=== PATIENT | male | born 1985 | race Caucasian/White ===

== ENCOUNTER 2017-05-21 17:01 | Emergency (ER) | payer OTHER ==
[~2017-05-21] VITALS: Ht 175.3 cm; Wt 99.8 kg
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
--- NOTE | ~2017-05-21 | CR93 ---
[facility] A Service of [facility] & [facility] RADIOLOGY TEXT RESULTS PATIENT: CAN CELIS LOCATION: [facility] : 89 UNIT #: [id number] AGE: [address]: Geno Peña SEX: M ORDER DR: [id number] [facility] [address]. [place], [place] [address] [id number] E MR#: [id number] Acc #: [id number] NAME: CAN CELIS : 1985 SEX: M STUDY DATE/TIME: 05/21/2017 18:27 UNIT: [facility] ROOM: STUDY DESCRIPTION: CR Elbow Min 3 Views Lt Attending Physician: Geno Peña Pa-C Ordering Physician: Geno Peña Pa-C MEDICAL IMAGING REPORT This report is preliminary unless electronic signature is present EXAM Left elbow series, 05/21/2017 HISTORY Fall. Posterior elbow pain today. FINDINGS AP, lateral and oblique radiographs of the left elbow show normal bony mineralization. No traumatic fracture or malalignment. The joint spaces are intact. No effusion. No acute-appearing soft tissue abnormality. Dictated by... Tony Bang M.D. THIS IS AN ELECTRONICALLY VERIFIED REPORT Tony Bang M.D. at 05/22/2017 8:03 PM MIKE/jesus TD: 05/21/2017 23:06 JOB #: [id number] MEDICAL IMAGING REPORT Page 1 of 1 COPY
[~2017-05-21 17:01] MED LIST: MOBIC PO; ZITHROMAX PO
== END 2017-05-21 19:15 | disposition home or self-care (01) ==
LOC: CFTX 17:01 → CED 17:01 → CFTX 18:32
DX: S52.592A Other fractures of lower end of left radius, initial encounter for closed fracture (principal); Z79.1 Long term (current) use of non-steroidal anti-inflammatories (NSAID); W18.39XA Other fall on same level, initial encounter; Y92.009 Unspecified place in unspecified non-institutional (private) residence as the place of occurrence of the external cause
CPT/HCPCS: 29125; 73080; 73110; 73130; 99283